=== PATIENT | female | born 1955 | race Caucasian/White ===

== ENCOUNTER 2018-01-27 07:31 | Outpatient (CLI) | payer OTHER | END 2018-01-27 07:32 | disposition home or self-care (01) | LOC: BICULT 07:31 | PROVIDERS: ATTEND Internal Medicine Gastroenterology | DX: R94.5 Abnormal results of liver function studies (principal); R19.7 Diarrhea, unspecified; R10.13 Epigastric pain; K59.00 Constipation, unspecified; Z90.49 Acquired absence of other specified parts of digestive tract | CPT/HCPCS: 76705 ==

== ENCOUNTER 2018-02-16 09:46 | Outpatient (CLI) | payer OTHER | END 2018-02-16 09:47 | disposition home or self-care (01) | LOC: BICMAMMO 09:46 | PROVIDERS: ATTEND Family Medicine | DX: Z12.31 Encounter for screening mammogram for malignant neoplasm of breast (principal); Z80.3 Family history of malignant neoplasm of breast | CPT/HCPCS: 77063; 77067 ==

== ENCOUNTER 2019-02-18 08:49 | Outpatient (CLI) | payer OTHER ==
--- NOTE | 2019-02-18 11:29 | MMO ---
Bilateral MAMMO Bilat Screen [facility]. CLINICAL HISTORY: Patient is 64 years old and is seen for screening. The patient has the following family history of breast cancer: sister. The patient has no personal history of cancer. VIEWS: The views performed were: bilateral craniocaudal with tomosynthesis and bilateral mediolateral oblique with tomosynthesis. FILMS COMPARED: The present examination has been compared to prior imaging studies performed at [facility] on 01/22/2017 and 02/16/2018, and at [facility] on 03/15/2013 and 12/08/2014. This study has been interpreted with the assistance of computer-aided detection. MAMMOGRAM FINDINGS: The breasts are heterogeneously dense, which could obscure a lesion on mammography. There are no suspicious masses, suspicious calcifications, or new areas of architectural distortion. IMPRESSION: THERE IS NO MAMMOGRAPHIC EVIDENCE OF MALIGNANCY. A ROUTINE FOLLOW-UP MAMMOGRAM IN 1 YEAR IS RECOMMENDED. THE RESULTS OF THIS EXAM WERE SENT TO THE PATIENT. ACR BI-RADS Category 1 - Negative MAMMOGRAPHY NOTE: 1. A negative mammogram report should not delay a biopsy if a dominant of clinically suspicious mass is present. 2. Approximately 10% to 15% of breast cancers are not detected by mammography. 3. Adenosis and dense breasts may obscure an underlying neoplasm. Reported by: ROLA VERGARA MD Electonically Signed: [id number]
== END 2019-02-18 08:50 | disposition home or self-care (01) ==
LOC: BICMAMMO 08:49
PROVIDERS: ATTEND Family Medicine
DX: Z12.31 Encounter for screening mammogram for malignant neoplasm of breast (principal); Z80.3 Family history of malignant neoplasm of breast
CPT/HCPCS: 77063; 77067

== ENCOUNTER 2019-08-17 11:25 | Outpatient (CLI) | payer OTHER ==
--- NOTE | 2019-08-17 16:25 | MRI ---
MRI ABDOMEN WITH AND WITHOUT IV CONTRAST: 08/17/19 HISTORY: Biliary cholangitis. FINDINGS: The patient is post cholecystectomy. There is an 8-9 mm T2 hyperintense lesion in the dome of the tiffany er with swelling on delayed postcontrast imaging consistent with benign hemangioma. No abnormal bilia ry ductal dilatation is seen. No cholelithiasis identified. The pancreatic duct is also normal. The c ommon duct measures 4 mm in diameter. The spleen, pancreas, adrenal glands and kidneys and right kidney are normal. There is a 6 mm cortica l cyst arising from the left kidney. No free fluid or lymphadenopathy seen in the abdomen. There is n o evidence or aneurysmal dilatation of the abdominal aorta. Bone marrow signal is normal. IMPRESSION: 1. Liver hemangioma. 2. Status post cholecystectomy without biliary obstruction. 3. Tiny left renal cyst. POS: [facility]
== END 2019-08-17 11:26 | disposition home or self-care (01) ==
LOC: MRI 11:25
PROVIDERS: ATTEND Internal Medicine Gastroenterology
DX: K74.3 Primary biliary cirrhosis (principal); D18.03 Hemangioma of intra-abdominal structures; N28.1 Cyst of kidney, acquired; Z90.49 Acquired absence of other specified parts of digestive tract
CPT/HCPCS: 74183; 82565

== ENCOUNTER 2020-03-10 08:45 | Outpatient (CLI) | payer OTHER ==
--- NOTE | 2020-03-10 09:29 | BD ---
EXAM: Bone densitometry using DEXA HISTORY: 65 yo female. Screening for postmenopausal osteoporosis FINDINGS: L1--bone mineral density 0.801 g/sq cm; T score -1.7 ; Z score -0.2 L2--bone mineral density 0.879 g/sq cm; T score -1.4 ; Z score 0.3 L3--bone mineral density 0.802 g/sq cm; T score -2.6 ; Z score -0.8 L4--bone mineral density 0.893 g/sq cm; T score -1.5 ; Z score 0.3 Total L1-L4--bone mineral density 0.847 g/sq cm; T score -1.8 ; Z score -0.1 Left femoral neck--bone mineral density0.787; T score -0.6 ; Z score 0.9 Total proximal left femur--bone mineral density 0.846; T score -0.8 ; Z score 0.4 The 10 year fracture risk for a major osteoporotic fracture is 17% and for a hip fracture is 0.3%. IMPRESSION: Osteopenia
--- NOTE | 2020-03-10 10:24 | MMO ---
Bilateral MAMMO Bilat Screen [facility]DI+LE. CLINICAL HISTORY: Patient is 65 years old and is seen for screening. The patient has the following family history of breast cancer: sister. The patient has no personal history of cancer. VIEWS: The views performed were: bilateral craniocaudal with tomosynthesis and bilateral mediolateral oblique with tomosynthesis. FILMS COMPARED: The present examination has been compared to prior imaging studies performed at [facility] on 01/22/2017, 02/16/2018 and 02/18/2019, and at [facility] on 12/08/2014. This study has been interpreted with the assistance of computer-aided detection. MAMMOGRAM FINDINGS: There are scattered fibroglandular densities. There is a stable mass measuring 5 millimeters with circumscribed margins seen in the right breast at 9 o'clock. There are no suspicious masses, suspicious calcifications, or new areas of architectural distortion. IMPRESSION: THERE IS NO MAMMOGRAPHIC EVIDENCE OF MALIGNANCY. A ROUTINE FOLLOW-UP MAMMOGRAM IN 1 YEAR IS RECOMMENDED. THE RESULTS OF THIS EXAM WERE SENT TO THE PATIENT. ACR BI-RADS Category 2 - Benign finding MAMMOGRAPHY NOTE: 1. A negative mammogram report should not delay a biopsy if a dominant of clinically suspicious mass is present. 2. Approximately 10% to 15% of breast cancers are not detected by mammography. 3. Adenosis and dense breasts may obscure an underlying neoplasm. Reported by: GARRY CALLEJAS MD Electonically Signed: [id number]
== END 2020-03-10 08:46 | disposition home or self-care (01) ==
LOC: BICMAMMO 08:45
PROVIDERS: ATTEND Family Medicine
DX: Z12.31 Encounter for screening mammogram for malignant neoplasm of breast (principal); Z13.820 Encounter for screening for osteoporosis; M85.88 Other specified disorders of bone density and structure, other site; Z80.3 Family history of malignant neoplasm of breast
CPT/HCPCS: 77063; 77067; 77080

== ENCOUNTER 2021-03-23 09:02 | Outpatient (CLI) | payer MEDICARE | END 2021-03-23 09:03 | disposition home or self-care (01) | LOC: BICMAMMO 09:02 | PROVIDERS: ATTEND Family Medicine | DX: Z12.31 Encounter for screening mammogram for malignant neoplasm of breast (principal); Z80.3 Family history of malignant neoplasm of breast | CPT/HCPCS: 77063; 77067 ==

== ENCOUNTER 2022-04-11 08:35 | Outpatient (CLI) | payer MEDICARE | END 2022-04-11 08:36 | disposition home or self-care (01) | LOC: BICMAMMO 08:35 | PROVIDERS: ATTEND Family Medicine | DX: Z12.31 Encounter for screening mammogram for malignant neoplasm of breast (principal); Z80.3 Family history of malignant neoplasm of breast | CPT/HCPCS: 77063; 77067 ==

== ENCOUNTER 2022-08-01 08:34 | Outpatient (CLI) | payer MEDICARE | END 2022-08-01 08:35 | disposition home or self-care (01) | LOC: BICMAMMO 08:34 | PROVIDERS: ATTEND Family Medicine | DX: Z13.820 Encounter for screening for osteoporosis (principal); N95.8 Other specified menopausal and perimenopausal disorders; M85.88 Other specified disorders of bone density and structure, other site | CPT/HCPCS: 77080 ==

== ENCOUNTER 2022-08-08 06:55 | Outpatient (CLI) | payer MEDICARE | END 2022-08-08 06:56 | disposition home or self-care (01) | LOC: BICULT 06:55 | PROVIDERS: ATTEND Internal Medicine Gastroenterology | DX: K58.0 Irritable bowel syndrome with diarrhea (principal); K74.3 Primary biliary cirrhosis; D18.03 Hemangioma of intra-abdominal structures | CPT/HCPCS: 76705 ==

== ENCOUNTER 2023-04-21 09:27 | Outpatient (CLI) | payer MEDICARE | END 2023-04-21 09:28 | disposition home or self-care (01) | LOC: BICMAMMO 09:27 | PROVIDERS: ATTEND Family Medicine | DX: Z12.31 Encounter for screening mammogram for malignant neoplasm of breast (principal); Z80.3 Family history of malignant neoplasm of breast | CPT/HCPCS: 77063; 77067 ==

== ENCOUNTER 2023-08-07 07:40 | Outpatient (CLI) | payer MEDICARE | END 2023-08-07 07:41 | disposition home or self-care (01) | LOC: BICULT 07:40 | PROVIDERS: ATTEND Internal Medicine Gastroenterology | DX: K74.3 Primary biliary cirrhosis (principal) | CPT/HCPCS: 76700 ==

== ENCOUNTER 2024-04-26 12:27 | Outpatient (CLI) | payer MEDICARE | END 2024-04-26 12:28 | disposition home or self-care (01) | LOC: BICMAMMO 12:27 | PROVIDERS: ATTEND Family Medicine | DX: Z12.31 Encounter for screening mammogram for malignant neoplasm of breast (principal); Z80.3 Family history of malignant neoplasm of breast | CPT/HCPCS: 77063; 77067 ==

== ENCOUNTER 2025-03-25 10:32 | Outpatient (CLI) | payer MEDICARE | END 2025-03-25 10:33 | disposition home or self-care (01) | LOC: BICMAMMO 10:32 | PROVIDERS: ATTEND Family Medicine | DX: N95.8 Other specified menopausal and perimenopausal disorders (principal); M85.88 Other specified disorders of bone density and structure, other site | CPT/HCPCS: 77080 ==